=== PATIENT | male | born 1990 | race Caucasian/White ===

== ENCOUNTER 2024-09-23 03:43 | Emergency (ER) | payer MEDICAID, OTHER ==
[~2024-09-23] VITALS: Ht 177.8 cm; Wt 77.1 kg
[2024-09-23 04:29] VITALS: BP 130/82; PULSE 90; RESP 16; TEMP 97.9; O2SAT 100
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
[2024-09-23] MEDS ORDERED: CYCL-837 PO (05:12)
[2024-09-23] MEDS ORDERED: IBUP-1456 PO (05:12)
== END 2024-09-23 05:18 | disposition home or self-care (01) ==
LOC: EDBD 03:43 → ER 03:43
DX: S16.1XXA Strain of muscle, fascia and tendon at neck level, initial encounter (principal); Z79.899 Other long term (current) drug therapy; V49.9XXA Car occupant (driver) (passenger) injured in unspecified traffic accident, initial encounter; Y93.89 Activity, other specified; Y92.410 Unspecified street and highway as the place of occurrence of the external cause; Y99.8 Other external cause status
CPT/HCPCS: 72125